=== PATIENT | male | born 1950 | race Caucasian/White ===

== ENCOUNTER → 2018-05-19 10:55 | Outpatient (CLI) | payer MEDICARE, SELFPAY ==
[2018-05-19 12:43] LABS: BUN Creatinine Ratio 17.5 (6-22); Blood Urea Nitrogen 21 mg/dL (9-20); Calcium 9.7 mg/dL (8.4-10.2); Carbon Dioxide 30 mmol/L (22-32); Chloride 103 mmol/L (98-107); Estimated Glomerular Filt Rate > 60.0 mL/min (>60); Glucose 103 mg/dL (80-110); HEMOLYSIS < 15 (0-50); Sodium 143 mmol/L (137-145)
== END ==
PROVIDERS: PCP Internal Medicine; Visit Provider Hospitalist
DX: I48.0 Paroxysmal atrial fibrillation (principal)
CPT/HCPCS: 36415; 80048

== ENCOUNTER → 2018-06-28 08:57 | Outpatient (CLI) | payer MEDICARE, SELFPAY ==
[2018-06-28 10:55] LABS: Alanine Aminotransferase 29 IU/L (21-72); Albumin 4.3 g/dL (3.5-5.0); Albumin Globulin Ratio 1.8 (1.0-2.8); Alkaline Phosphatase 74 U/L (38-126); Aspartate Aminotransferase 24 IU/L (17-59); BUN Creatinine Ratio 15.5 (6-22); Bilirubin Total 0.7 mg/dL (0.2-1.3); Blood Urea Nitrogen 17 mg/dL (9-20); Calcium 9.6 mg/dL (8.4-10.2); Carbon Dioxide 27 mmol/L (22-32); Chloride 102 mmol/L (98-107); Cholesterol 198 mg/dL (140-199); Estimated Glomerular Filt Rate > 60.0 mL/min (>60); Globulin 2.4 g/dL (1.7-4.1); Glucose 104 mg/dL (80-110); HDL Cholesterol 54 mg/dL (40-60); HEMOLYSIS < 15 (0-50); LDL Cholesterol Calculated 124 mg/dL (<100); Potassium 4.4 mmol/L (3.4-5.1); Sodium 141 mmol/L (137-145); Total Protein 6.7 g/dL (6.3-8.2); Triglycerides 98 mg/dL (35-150)
[2018-06-28 11:03] LABS: Free T4, Direct Thyroxine 1.15 ng/dL (0.78-2.19)
[2018-06-28 11:16] LABS: Prostate Specific Antigen Scrn 1.11 ng/mL (0.1-4.0)
[2018-06-28 11:17] LABS: Thyroid Stimulating Hormone 1.56 uIU/mL (0.47-4.68)
== END ==
PROVIDERS: PCP Internal Medicine; Visit Provider Internal Medicine
DX: I48.0 Paroxysmal atrial fibrillation (principal); Z12.5 Encounter for screening for malignant neoplasm of prostate; Z13.6 Encounter for screening for cardiovascular disorders
CPT/HCPCS: 36415; 80053; 80061; 84439; 84443; G0103

== ENCOUNTER 2019-10-06 12:42 | Emergency (ER) | payer OTHER, SELFPAY ==
[2019-10-06 12:50] VITALS: BP 161/76; PULSE 56; RESP 18; TEMP 36.4; O2SAT 99
--- NOTE | 2019-10-06 13:09 | ED.EPISTAXIS ---
HPI - Epistaxis General Chief complaint: Nasal Problem Stated complaint: desk slammed into face, thinks Fx nose Time Seen by Provider: 10/06/19 12:51 Source: patient and family Mode of arrival: Ambulatory Limitations: no limitations History of Present Illness HPI Narrative: 68-year-old male nonsmoker with history of clotting disorder on Eliquis presents with a chief complaint of an accidental injury this morning which resulted in a significant nose bleed. The patient was carrying a heavy object down some stairs when he slipped and rammed his face into a large wooden block. He states that his nose took all of the injury and did not hit his head. He denies loss of consciousness nor nausea or vomiting. He has significant nose pain and is convinced he broke his nose. Additionally, he has had significant bleeding coming from both nostrils. He is not dizzy nor weak or lightheaded. He is otherwise well and free from injury. MD complaint: epistaxis Location: bilateral nostril Onset (ago): hour(s) Duration: constant Treatment prior to arrival: nose pinching Related Data Home Medications Medication Instructions Recorded Confirmed ASCORBIC ACID (VITAMIN C) 1,000 mg PO Q DAY #0 10/01/11 06/27/18 diltiazem HCl 120 mg PO QDAY #0 05/14/17 06/27/18 esomeprazole magnesium [Nexium] 40 mg PO QDAY #0 05/14/17 06/27/18 cholecalciferol (vitamin D3) 125 5,000 unit PO DAILY 06/27/18 06/27/18 mcg (5,000 unit) capsule edoxaban 60 mg tablet 60 mg PO DAILY 06/27/18 06/27/18 flecainide 100 mg tablet 100 mg PO Q12H 06/27/18 06/27/18 iuxzeheh-gto-atbuu acid 300 1 tab PO DAILY 06/27/18 06/27/18 mcg-lycopene 600 mcg-lutein 300 mcg tablet Previous Rx's Medication Instructions Recorded mupirocin 2 % topical ointment 1 applic TOP BID #30 gram 07/11/19 trazodone 50 mg tablet See Rx Instructions .ROUTE 10/02/19 .COMPLEX #90 tablet Allergies Allergy/AdvReac Type Severity Reaction Status Date / Time No Known Drug Allergies Allergy Verified 10/06/19 13:10 Review of Systems Constitutional Constitutional: Denies chills, Denies fatigue, Denies fever(s), Denies frequent falls, Denies lethargy and Denies weakness Eyes Eyes: Denies change in vision, Denies eye discharge, Denies irritation and Denies loss of vision ENT Ears, Nose, Mouth, and Throat: Denies change in voice, Denies dizziness, Reports epistaxis, Denies neck pain, Denies sore throat and Denies throat swelling Cardiovascular Cardiovascular: Denies chest pain, Denies irregular heart rhythm, Denies lightheadedness, Denies palpitations, Denies dyspnea, Denies dyspnea on exertion and Denies orthopnea Respiratory Respiratory: Denies cough, Denies dyspnea, Denies dyspnea on exertion and Denies wheezing Gastrointestinal Gastrointestinal: Denies abdominal pain, Denies change in bowel habits, Denies diarrhea, Denies nausea and Denies vomiting Genitourinary Genitourinary: Denies hematuria, Denies flank pain, Denies urinary incontinence and Denies urinary urgency Musculoskeletal Musculoskeletal: Denies back pain, Denies muscle weakness, Denies neck pain, Denies numbness and Denies tingling Integumentary/Breasts Skin/Breast: Denies pruritus, Denies erythema, Denies rash and Denies wounds Neurologic Neurologic: Denies behavioral changes, Denies confusion, Denies dizziness, Denies frequent falls, Denies loss of vision, Denies numbness, Denies tingling and Denies weakness Psychiatric Psychiatric: Denies anxiety, Denies behavioral changes, Denies confusion, Denies depression, Denies homicidal ideation and Denies suicidal ideation Endocrine Endocrine: Denies fatigue, Denies flushing and Denies palpitations Hematologic/Lymphatic Hematologic/Lymphatic: Denies easy bruising Allergic/Immunologic Allergic/Immunologic: Denies urticaria, Denies throat swelling and Denies wheezing Patient History Medical History Back stiffness (Resolved) Basal cell carcinoma (BCC) of right ala nasi (Resolved 12/2017) Basal cell carcinoma (BCC) of right cheek (Resolved 12/2017) Chicken pox (Resolved ~1959) History of cardioversion (Resolved 1998) Measles (Resolved ~1961) Mumps (Resolved ~1961) MICHAEL (obstructive sleep apnea) (Chronic 02/01/15) Paroxysmal atrial fibrillation (Chronic 01/10/14) Thumb fracture (Resolved 1967) Tinnitus (Chronic ~1999) Surgical History Anesthesia (Resolved) History of colonoscopy (Resolved 02/18/07) History of colonoscopy (Resolved 05/22/16) History of lung biopsy (Resolved) History of thumb surgery (Resolved 1967) History of tonsillectomy (Resolved 1957) History of vasectomy (Resolved 2001) Status post knee surgery (Resolved 1968) Status post Mohs micrographic surgery for basal cell carcinoma (BCC) (Resolved 01/03/18) Family History Brother Age: 56 Atrial fibrillation Father Age: 91 Atrial fibrillation Parkinson's disease Mother Age: 91 Poor balance Sister No problems noted. 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 ) substance use type: does not use Smoking Status: Never smoker Exam Narrative Exam Narrative: GENERAL: [68] year old patient appears stated age. Well-nourished, well-developed patient, in mild distress. HEAD: Atraumatic. Normocephalic. EYES: Pupils equal round and reactive. Extraocular motions intact. No scleral icterus. No injection or drainage. ENT: Nose with swelling and tenderness to palpation, active bleeding and fresh clots in bilateral nostrils. No obvious source of bleeding noted. Throat without erythema, tonsillar hypertrophy or exudate. Airway patent. NECK: Trachea midline. Non tender CARDIOVASCULAR: Regular rate and rhythm without murmurs, gallops, or rubs. RESPIRATORY: Clear to auscultation. Breath sounds equal bilaterally. No wheezes, rales, or rhonchi. GASTROINTESTINAL: Abdomen soft, non-tender, nondistended. EXTREMITIES: No edema or joint tenderness. BACK: Nontender without deformity or crepitance. No flank tenderness. NEURO: AOx3. SKIN: No rash or erythema of visible areas Initial Vital Signs Initial Vital Signs: Vital Signs Temperature 97.5 F L 10/06/19 12:50 Pulse Rate 56 L 10/06/19 12:50 Respiratory Rate 18 10/06/19 12:50 Blood Pressure 161/76 H 10/06/19 12:50 Pulse Oximetry 99 10/06/19 12:50 Procedures Epistaxis Control Time Out Performed: No Nostril: bilateral Nose Prepped With: oxymetazoline Direct Inspection: yes and unable to visualize Clots Removed by: blowing nose Device Inserted: other Course Course Course Narrative: Given Eliquis and significant amount of bleeding as well as inability to visualize source of bleeding nasal tampon or rhino rockets are indicated. I have consulted ENT given the presence of nasal bone and septal fracture and they request patient be sent to their office directly from ED. Orders Ordered: ED Orders 10/06/19 13:17 CT facial bones wo con Stat Discontinued Medications Oxymetazoline HCl (Afrin) 2 sprays NASAL NOW ONE Stop: 10/06/19 14:29 Last Admin: 10/06/19 14:41 Dose: 2 sprays Documented by: CAROL Tranexamic Acid (Cyklokapron) 1,000 mg MM NOW ONE Stop: 10/06/19 14:29 Last Admin: 10/06/19 14:41 Dose: 1,000 mg Documented by: CAROL Vital Signs Vital signs: Vital Signs - 8 hr 10/06/19 12:50 10/06/19 14:58 Temperature 97.5 F L Pulse Rate 56 L 55 L Respiratory Rate 18 18 Blood Pressure 161/76 H Blood Pressure [Left Arm] 146/72 H Pulse Oximetry 99 99 MDM - Epistaxis Imaging Data CT Facial Bones: Radiologist's Impression: [address] [address] [address] Scan Report Signed Patient: Wojciech Qunin FMR#: [id number] : 2Acct:[id number] Age/Sex: 68 / MDate of Service: 10/06/19 Loc: ED Accession Number: [id number] Procedure: CT facial bones wo con Ordering Provider: Victor M Perkins D.O. PROCEDURE: CT FACIAL BONES WO CON INDICATIONS: facial injury, on eliquis TECHNIQUE: Noncontrast 2.5 mm thick axial images acquired from the mandible through the frontal sinuses, with coronal and sagittal reformatting. For radiation dose reduction, the following was used: automated exposure control, adjustment of mA and/or kV according to patient size. COMPARISON: None. FINDINGS: Image quality: Excellent. Bones and teeth: Orbital johns are intact. Sinus johns show no fracture or deformity. Nasal bones and septum are injured, with what appears to be bilateral very slightly displaced nasal bone fractures at the middle third of the midline nasal septum there is a small acutely angulated deviation of the septal wall rightward, seen on series 2 image 78. Visualized portions of the mandible demonstrate no fractures or subluxation. Zygomatic arches are intact. Pterygoid plates are intact. Visualized portions of the skull base and auditory canals are intact. Sinuses: Paranasal sinuses are aerated, without fluid levels, mucosal thickening, or mucoceles. Mastoid air cells are aerated. Soft tissues: No edema, masses, or fluid collections. No enlarged lymph nodes. No soft tissue lacerations or debris. Vascular: Visualized vascular structures appear normal in the absence of contrast. Bony vascular foramina and canals are intact. IMPRESSION: Minimally displaced bilateral nasal bone fractures, minimally displaced midline nasal septal fracture at the middle third of the nasal septum, without secondary acute deviation of the nasal septum. Mild ethmoid air cell opacification likely represents reflux of epistaxis in this clinical circumstance. Dictated by: Moy Moreno M.D. on 10/06/2019 at 13:45 Approved by: Moy Moreno M.D. on 10/06/2019 at 13:48 Discharge Plan Departure Patient Disposition: Home Clinical Impression: Acute posterior epistaxis, Anticoagulation adequate Closed fracture nasal bone Qualifiers: Encounter type: initial encounter Qualified Code(s): S02.2XXA - Fracture of nasal bones, initial encounter for closed fracture Discharge Date/Time: 10/06/19 15:01 Activity Restrictions/Additional Instructions: Please proceed directly from our emergency department to [facility], Dr. Ferrer is waiting for you Directions have been provided Prescriptions: No Action mupirocin 2 % ointment 1 applic TOP BID Qty: 30 RF: 0 ASCORBIC ACID (VITAMIN C) 1,000 mg PO Q DAY Qty: 0 RF: 0 diltiazem HCl 120 MG capsule,extended release 24hr 120 mg PO QDAY Qty: 0 RF: 0 esomeprazole magnesium [Nexium] 40 MG capsule,delayed release(DR/EC) 40 mg PO QDAY Qty: 0 RF: 0 trazodone 50 mg tablet See Rx Instructions .ROUTE .COMPLEX Qty: 90 RF: 0 flecainide 100 mg tablet 100 mg PO Q12H RF: 0 cholecalciferol (vitamin D3) 5,000 unit capsule 5,000 unit PO DAILY RF: 0 zdzyvdoo-nfo-AB-lycopen-lutein [Centrum Silver Ultra Men's] 300-600-300 mcg tablet 1 tab PO DAILY RF: 0 edoxaban 60 mg tablet 60 mg PO DAILY RF: 0 Referrals: Jose G Ferrer MD [Physician] - Nain Blood MD [Primary Care Provider] -
--- NOTE | 2019-10-06 13:11 | PC.NURSE ---
nasal clamp placed on at triage. bleeding controlled
--- NOTE | 2019-10-06 13:17 | DI.CT.S_ITS ---
PROCEDURE: CT FACIAL BONES WO CON INDICATIONS: facial injury, on eliquis TECHNIQUE: Noncontrast 2.5 mm thick axial images acquired from the mandible through the frontal sinuses, with coronal and sagittal reformatting. For radiation dose reduction, the following was used: automated exposure control, adjustment of mA and/or kV according to patient size. COMPARISON: None. FINDINGS: Image quality: Excellent. Bones and teeth: Orbital johns are intact. Sinus johns show no fracture or deformity. Nasal bones and septum are injured, with what appears to be bilateral very slightly displaced nasal bone fractures at the middle third of the midline nasal septum there is a small acutely angulated deviation of the septal wall rightward, seen on series 2 image 78. Visualized portions of the mandible demonstrate no fractures or subluxation. Zygomatic arches are intact. Pterygoid plates are intact. Visualized portions of the skull base and auditory canals are intact. Sinuses: Paranasal sinuses are aerated, without fluid levels, mucosal thickening, or mucoceles. Mastoid air cells are aerated. Soft tissues: No edema, masses, or fluid collections. No enlarged lymph nodes. No soft tissue lacerations or debris. Vascular: Visualized vascular structures appear normal in the absence of contrast. Bony vascular foramina and canals are intact. IMPRESSION: Minimally displaced bilateral nasal bone fractures, minimally displaced midline nasal septal fracture at the middle third of the nasal septum, without secondary acute deviation of the nasal septum. Mild ethmoid air cell opacification likely represents reflux of epistaxis in this clinical circumstance. Dictated by: Moy Moreno M.D. on 10/06/2019 at 13:45 Approved by: Moy Moreno M.D. on 10/06/2019 at 13:48
[2019-10-06] MEDS: OXYMETAZOLINE NASAL SPRAY 30 ML 2 SPRAYS NASAL (14:41)
[2019-10-06] MEDS: TRANEXAMIC ACID 1,000 MG VIAL 1000 MG MM (14:41)
[2019-10-06 14:58] VITALS: BP 146/72; PULSE 55; RESP 18; O2SAT 99
== END 2019-10-06 15:01 | disposition home or self-care (01) ==
PROVIDERS: Emergency Provider Emergency Medicine; PCP Internal Medicine
DX: S02.2XXA Fracture of nasal bones, initial encounter for closed fracture (principal); R04.0 Epistaxis; D68.32 Hemorrhagic disorder due to extrinsic circulating anticoagulants; T45.515A Adverse effect of anticoagulants, initial encounter; W22.8XXA Striking against or struck by other objects, initial encounter; Z79.01 Long term (current) use of anticoagulants
CPT/HCPCS: 70486; 99283; 99284

== ENCOUNTER → 2019-10-19 10:17 | Outpatient (CLI) | payer OTHER, SELFPAY ==
[2019-10-19 11:12] LABS: Add Manual Diff / Slide Review NO; Basophils Absolute Auto 0 /uL (0-100); Basophils Percent Auto 0.6 % (0-2); Eosinophils Absolute Auto 0 /uL (0-450); Eosinophils Percent Auto 0.7 % (2-4); Hemoglobin 14.5 g/dL (13.5-17.5); Lymphocytes Absolute Auto 1500 /uL (1100-4500); Lymphocytes Percent Auto 28.7 % (25-40); Mean Corpuscular HGB Conc 33.7 % (30-36); Mean Corpuscular Hemoglobin 29.5 PG (26-34); Mean Corpuscular Volume 87.5 fL (80-100); Monocytes Absolute Auto 400 /uL (0-900); Monocytes Percent Auto 7.6 % (3-14); Neutrophils Absolute Auto 3300 /uL (1500-7000); Neutrophils Percent Auto 62.4 % (50-75); Platelet Count 251 X10^3/uL (150-400); Red Blood Cell Count 4.91 X10^6/uL (4.5-5.9); Red Cell Distribution Width 13.3 % (11.6-14.8); White Blood Cell Count 5.3 X10^3/uL (4.5-11.0)
[2019-10-19 12:40] LABS: Alanine Aminotransferase 20 IU/L (<50); Albumin 4.3 g/dL (3.5-5.0); Albumin Globulin Ratio 1.7 (1.0-2.8); Alkaline Phosphatase 72 U/L (38-126); Aspartate Aminotransferase 28 IU/L (17-59); Bilirubin Total 0.6 mg/dL (0.2-1.3); Blood Urea Nitrogen 21 mg/dL (9-20); Calcium 9.5 mg/dL (8.4-10.2); Carbon Dioxide 27 mmol/L (22-32); Chloride 102 mmol/L (98-107); Cholesterol 134 mg/dL (140-199); Estimated Glomerular Filt Rate > 60.0 mL/min (>60); Globulin 2.6 g/dL (1.7-4.1); Glucose 100 mg/dL (80-110); HDL Cholesterol 55 mg/dL (40-60); HEMOLYSIS < 15 (0-50); LDL Cholesterol Calculated 63 mg/dL (<100); Potassium 4.8 mmol/L (3.4-5.1); Sodium 140 mmol/L (137-145); Total Protein 6.9 g/dL (6.3-8.2); Triglycerides 79 mg/dL (35-150)
[2019-10-19 12:49] LABS: Free T4, Direct Thyroxine 1.21 ng/dL (0.78-2.19)
[2019-10-19 13:03] LABS: Thyroid Stimulating Hormone 2.46 uIU/mL (0.47-4.68)
== END ==
PROVIDERS: PCP Family Medicine Sports Medicine; Referring Provider Hospitalist; Visit Provider Hospitalist
DX: E78.00 Pure hypercholesterolemia, unspecified (principal); E78.5 Hyperlipidemia, unspecified
CPT/HCPCS: 36415; 80053; 80061; 84439; 84443; 85025

== ENCOUNTER → 2020-02-06 14:32 | Outpatient (CLI) | payer OTHER, SELFPAY ==
[2020-02-06 17:53] LABS: Prostate Specific Antigen 1.35 ng/mL (0.10-4.00)
== END ==
PROVIDERS: PCP Family Medicine Sports Medicine; Referring Provider Family Medicine Sports Medicine; Visit Provider Family Medicine Sports Medicine
DX: R35.0 Frequency of micturition (principal)
CPT/HCPCS: 36415; 84153

== ENCOUNTER → 2020-07-16 09:44 | Outpatient (CLI) | payer OTHER, SELFPAY ==
--- NOTE | 2020-07-16 | DI.US.S_ITS ---
PROCEDURE: US CAROTID DOPPLER BI INDICATIONS: DIZZINESS TECHNIQUE: Color and pulse Doppler interrogation was performed of both carotid systems, with image documentation and velocity measurements. COMPARISON: None. FINDINGS: Stenosis calculations are based on SRU (Society of Radiologists in Ultrasound) criteria. Right side: Brachial blood pressure: 112/64 mm Hg. Common carotid artery peak systolic velocity: 127 cm/sec Internal carotid artery peak systolic velocity: 112 cm/sec. Internal carotid artery end diastolic velocity: 24 cm/sec. External carotid artery peak systolic velocity: 104 cm/sec. ICA/CCA peak systolic ratio: 0.9 . San scale imaging description: Mild soft plaque Percent internal carotid artery stenosis: Less than 50% stenosis . Vertebral artery: Flow direction is antegrade. Left side: Brachial blood pressure: 112/69 mm Hg. Common carotid artery peak systolic velocity: 134 cm/sec. Internal carotid artery peak systolic velocity: 96 cm/sec. Internal carotid artery end diastolic velocity: 16 cm/sec. External carotid artery peak systolic velocity: 99 cm/sec. ICA/CCA peak systolic ratio: 0.7 . Asn scale imaging description: Mild soft plaque Percent internal carotid artery stenosis: Less than 50% stenosis. Vertebral artery: Flow direction is antegrade. IMPRESSION: Less than 50% stenosis at the proximal internal carotid arteries bilaterally. Note: Within the thyroid lobe during the course of the examination it was noted that several thyroid nodules are present, measuring up to almost 1.9 cm. If clinically desired a dedicated follow-up thyroid ultrasound could be performed. Dictated by: Moy Moreno M.D. on 07/16/2020 at 13:03 Approved by: Moy Moreno M.D. on 07/16/2020 at 13:12
== END ==
PROVIDERS: PCP Family Medicine Sports Medicine; Referring Provider Family Medicine Sports Medicine; Visit Provider Family Medicine Sports Medicine
DX: I65.23 Occlusion and stenosis of bilateral carotid arteries (principal); R42 Dizziness and giddiness; E04.2 Nontoxic multinodular goiter
CPT/HCPCS: 93880

== ENCOUNTER → 2020-08-19 13:17 | Outpatient (CLI) | payer OTHER, SELFPAY ==
[2020-08-19 14:24] LABS: Alanine Aminotransferase 34 IU/L (<50); Albumin 4.3 g/dL (3.5-5.0); Albumin Globulin Ratio 1.7 (1.0-2.8); Alkaline Phosphatase 88 U/L (38-126); Aspartate Aminotransferase 39 IU/L (17-59); BUN Creatinine Ratio 17.5 (6-22); Bilirubin Total 0.9 mg/dL (0.2-1.3); Blood Urea Nitrogen 17 mg/dL (9-20); Calcium 9.3 mg/dL (8.4-10.2); Carbon Dioxide 29 mmol/L (22-32); Chloride 102 mmol/L (98-107); Estimated Glomerular Filt Rate > 60.0 mL/min (>60); Globulin 2.6 g/dL (1.7-4.1); Glucose 93 mg/dL (80-110); HEMOLYSIS < 15 (0-50); Potassium 4.5 mmol/L (3.4-5.1); Sodium 136 mmol/L (137-145); Total Protein 6.9 g/dL (6.3-8.2)
== END ==
PROVIDERS: PCP Family Medicine Sports Medicine; Referring Provider Internal Medicine Cardiovascular Disease; Visit Provider Internal Medicine Cardiovascular Disease
DX: I48.0 Paroxysmal atrial fibrillation (principal)
CPT/HCPCS: 36415; 80053

== ENCOUNTER → 2020-09-10 12:26 | Outpatient (CLI) | payer OTHER, SELFPAY ==
[2020-09-10 13:21] LABS: BUN Creatinine Ratio 19.2 (6-22); Blood Urea Nitrogen 19 mg/dL (9-20); Calcium 9.3 mg/dL (8.4-10.2); Carbon Dioxide 30 mmol/L (22-32); Chloride 102 mmol/L (98-107); Estimated Glomerular Filt Rate > 60.0 mL/min (>60); Glucose 95 mg/dL (80-110); HEMOLYSIS < 15 (0-50); Potassium 4.5 mmol/L (3.4-5.1); Sodium 138 mmol/L (137-145)
== END ==
PROVIDERS: PCP Family Medicine Sports Medicine; Referring Provider Internal Medicine Cardiovascular Disease; Visit Provider Internal Medicine Cardiovascular Disease
DX: I48.0 Paroxysmal atrial fibrillation (principal)
CPT/HCPCS: 36415; 80048

== ENCOUNTER → 2021-07-22 11:23 | Outpatient (CLI) | payer OTHER, SELFPAY ==
[2021-07-22 13:25] LABS: Prostate Specific Antigen 1.22 ng/mL (0.10-4.00)
== END ==
PROVIDERS: PCP Family Medicine Sports Medicine; Referring Provider Family Medicine Sports Medicine; Visit Provider Family Medicine Sports Medicine
DX: E78.5 Hyperlipidemia, unspecified (principal); Z12.5 Encounter for screening for malignant neoplasm of prostate
CPT/HCPCS: 36415; 80061; 84153

== ENCOUNTER → 2022-08-13 11:21 | Outpatient (CLI) | payer OTHER, SELFPAY ==
[2022-08-13 14:20] LABS: Alanine Aminotransferase 28 IU/L (<50); Albumin 3.9 g/dL (3.5-5.0); Albumin Globulin Ratio 1.5 (1.0-2.8); Alkaline Phosphatase 89 U/L (38-126); Aspartate Aminotransferase 30 IU/L (17-59); BUN Creatinine Ratio 19.4 (6-22); Bilirubin Total 0.4 mg/dL (0.2-1.3); Blood Urea Nitrogen 19 mg/dL (9-20); Calcium 8.6 mg/dL (8.4-10.2); Carbon Dioxide 28 mmol/L (22-32); Chloride 102 mmol/L (98-107); Cholesterol 146 mg/dL (140-199); Estimated Glomerular Filt Rate > 60 mL/min (>60); Globulin 2.6 g/dL (1.7-4.1); Glucose 92 mg/dL (80-110); HDL Cholesterol 59 mg/dL (40-60); HEMOLYSIS < 15 (0-50); LDL Cholesterol Calculated 72 mg/dL (<100); Potassium 4.4 mmol/L (3.4-5.1); Sodium 137 mmol/L (137-145); Total Protein 6.5 g/dL (6.3-8.2); Triglycerides 76 mg/dL (35-150)
== END ==
PROVIDERS: PCP Family Medicine Sports Medicine; Referring Provider Family Medicine Sports Medicine; Visit Provider Family Medicine Sports Medicine
DX: E78.5 Hyperlipidemia, unspecified (principal); Z11.59 Encounter for screening for other viral diseases
CPT/HCPCS: 36415; 80053; 80061

== ENCOUNTER → 2022-08-21 13:14 | Outpatient (CLI) | payer OTHER, SELFPAY ==
--- NOTE | 2022-08-21 13:15 | DI.US.S_ITS ---
PROCEDURE: US THYROID INDICATIONS: Nontoxic multinodular goiter TECHNIQUE: Real-time scanning was performed of the thyroid gland, with image documentation. COMPARISON: None. FINDINGS: Right: Thyroid lobe measures 4.9 x 2.3 x 2.0 cm, and is homogeneous in echotexture. Left: Thyroid lobe measures 4.1 x 2.1 x 1.4 cm, and is homogenous in echotexture. Isthmus: 6.3 mm thick. Nodule number: 1 Location: Right midpole Size: 1.9 x 1.1 x 1.5 cm. Composition: Predominantly solid Echogenicity: Isoechoic/hypoechoic Shape: wider than tall. Margins: Smooth Echogenic foci: Microcalcifications Total points: 4 ACR TI-RADS category: 4 Nodule number: 2 Location: Right inferior lobe Size: 1.7 x 1.2 x 1.3 cm. Composition: Mixed cystic and solid Echogenicity: Hypoechoic Shape: wider than tall. Margins: Smooth Echogenic foci: Microcalcifications Total points: 4 ACR TI-RADS category: 4 Nodule number: 3 Location: Left midpole Size: 0.8 x 0.6 x 0.6 cm. Composition: Predominantly solid Echogenicity: Hypoechoic Shape: wider than tall. Margins: Smooth Echogenic foci: Punctate Total points: 7 ACR TI-RADS category: 5 IMPRESSION: 1. TI-RADS 4 nodules in the right midpole and right inferior pole measuring greater than 1.5 cm and meet criteria for FNA. Recommend FNA of these nodules. 2. TI-RADS 5 nodule in the left inferior pole less than 1 centimeter. Recommend follow-up in 1 year. ACR TI-RADS definitions and recommendations: TI-RADS 1 (benign): 0 points. FNA not needed. TI-RADS 2 (not suspicious): 2 points. FNA not needed. TI-RADS 3 (mildly suspicious): 3 points. * FNA if 2.5 cm or larger, follow up if 1.5 cm or larger (at 1, 3, and 5 years). TI-RADS 4 (moderately suspicious): 4-6 points. * FNA if 1.5 cm or larger, follow up if 1 cm or larger (at 1, 2, 3, and 5 years). TI-RADS 5 (highly suspicious): 7 points or more. * FNA if 1 cm or larger, follow up if 0.5 cm or larger (every year for 5 years). Dictated by: Calixto Duff M.D. on 08/21/2022 at 16:26 Approved by: Calixto Duff M.D. on 08/21/2022 at 16:32
== END ==
PROVIDERS: PCP Family Medicine Sports Medicine; Referring Provider Family Medicine Sports Medicine; Visit Provider Family Medicine Sports Medicine
DX: E04.2 Nontoxic multinodular goiter (principal)
CPT/HCPCS: 76536

== ENCOUNTER 2023-04-03 19:29 | Emergency (ER) | payer OTHER, SELFPAY ==
[2023-04-03] VITALS (7 sets, daily range): BP systolic 128–153; BP diastolic 65–75; PULSE 60; RESP 14–19; TEMP 37.4; O2SAT 95–98; BMI 30.9
--- NOTE | 2023-04-03 19:40 | ED.NEUROSD ---
HPI - Neuro Symptoms/Deficit <Victor M Birchan, DO - Last Filed: 04/04/23 18:19> General Chief Complaint: Neuro Symptoms/Deficit Stated Complaint: Slurring speech T-4 Time Seen by Provider: 04/03/23 19:38 Source: patient and family Mode of arrival: Ambulatory History of Present Illness HPI Narrative: 72-year-old male nonsmoker with history of atrial fibrillation on anticoagulation with pacemaker presents with his in the chief complaint of about 4 days of neurologic symptoms including trouble with speech and slurring of his words. There is no obvious pattern to his symptoms but he states it is happened multiple times each day and when present symptoms last approximately 15 minutes. He is fully aware of when it is happening and denies other symptoms such as dizziness, trouble walking, blurred vision or facial droop. There is no upper or lower extremity numbness, tingling or weakness. His last episode was just prior to his arrival. He is not activated as code stroke as on his arrival he has no symptoms, no evidence of a large vessel occlusion and he is anticoagulated. PACEMAKER [facility] placed at [facility] (Dr. Kendall) 06/24/21 On Anticoagulants: Yes (eliquis) Related Data Home Medications Medication Instructions Recorded Confirmed ASCORBIC ACID (VITAMIN C) 1,000 mg PO Q DAY ##0 10/01/11 06/27/18 diltiazem HCl 120 mg 120 mg PO QDAY ##0 05/14/17 06/27/18 capsule,extended release 24 hr esomeprazole magnesium 40 mg 40 mg PO QDAY ##0 05/14/17 06/27/18 capsule,delayed release (Nexium) cholecalciferol (vitamin D3) 125 5,000 unit PO DAILY 06/27/18 06/27/18 mcg (5,000 unit) capsule edoxaban 60 mg tablet 60 mg PO DAILY 06/27/18 06/27/18 flecainide 100 mg tablet 50 mg PO Q12H 06/27/18 04/04/23 [id number] 300 mcg-K 60 1 tab PO DAILY 06/27/18 06/27/18 mcg-lycop 600 mcg-lutein 300 mcg tablet (Centrum Silver Ultra Men's) apixaban 5 mg tablet (Eliquis) 5 mg PO BID 04/03/23 04/03/23 atorvastatin 40 mg tablet 40 mg PO DAILY 04/04/23 04/04/23 metoprolol succinate 25 mg 12.5 mg PO DAILY 04/04/23 04/04/23 tablet,extended release 24 hr omeprazole 20 mg capsule,delayed 20 mg PO DAILY 04/04/23 04/04/23 release trazodone 50 mg tablet 100 mg PO BEDTIME 04/04/23 04/04/23 Previous Rx's Medication Instructions Recorded mupirocin 2 % topical ointment 1 applic topical BID #30 grams 07/11/19 Allergies Allergy/AdvReac Type Severity Reaction Status Date / Time No Known Drug Allergies Allergy Verified 10/06/19 13:10 Review of Systems <Victor M Perkins DO - Last Filed: 04/04/23 18:19> Review of Systems Narrative: GENERAL: Denies chills, fatigue, malaise, fever, sweats. HEENT: Denies sinus pain, ear pain, sore throat, difficulty swallowing, dizziness. RESPIRATORY: Denies dyspnea, cough, wheezing, hemoptysis, sputum. CARDIOVASCULAR: Denies chest pain, palpitations, orthopnea, edema, GASTROINTESTINAL: Denies nausea, vomiting, abdominal pain, diarrhea, constipation, melena. : Denies dysuria, frequency, incontinence, hematuria, urinary retention. MUSCULOSKELETAL: denies weakness, joint pain, or bony pain SKIN: Denies rash, skin lesions, or other NEUROLOGIC: See HPI PSYCHIATRIC: No concerning psychosocial issues. 12 point review of systems is negative except for those stated above Hematologic/Lymphatic On Anticoagulants: Yes (eliquis) Patient History <Victor M Perkins DO - Last Filed: 04/04/23 18:19> Medical History (Updated 04/04/23 @ 08:48 by Marnie Guzman DO) Back stiffness Basal cell carcinoma (BCC) of right ala nasi (12/2017) Basal cell carcinoma (BCC) of right cheek (12/2017) Chicken pox (~1959) History of cardioversion (1998) Measles (~1961) Mumps (~1961) MICHAEL (obstructive sleep apnea) (02/01/15) Paroxysmal atrial fibrillation (08/25/13) Thumb fracture (1967) Tinnitus (~1999) Surgical History Anesthesia History of colonoscopy (02/18/07) History of colonoscopy (05/22/16) History of lung biopsy History of thumb surgery (1967) History of tonsillectomy (1957) History of vasectomy (2001) Status post knee surgery (1968) Status post Mohs micrographic surgery for basal cell carcinoma (BCC) (01/03/18) Family History Brother Age: 59 Atrial fibrillation Father Age: 94 Atrial fibrillation Parkinson's disease Mother Age: 94 Poor balance Sister No problems noted. 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 ) substance use type: does not use Smoking Status: Never smoker alcohol intake frequency: a few times a month Substance Use Type: does not use Exam <Victor M Perkins DO - Last Filed: 04/04/23 18:19> Narrative Exam Narrative: GENERAL: [72] year old patient appears stated age. Well-developed patient, in mild distress. HEAD: Atraumatic. Normocephalic. EYES: Pupils equal round and reactive. Extraocular motions intact. No scleral icterus. No injection or drainage. ENT: Nose without bleeding, purulent drainage. Throat without erythema, tonsillar hypertrophy or exudate. Airway patent. NECK: Trachea midline. Non tender CARDIOVASCULAR: Regular rate and rhythm without murmurs, gallops, or rubs. RESPIRATORY: Clear to auscultation. Breath sounds equal bilaterally. No wheezes, rales, or rhonchi. GASTROINTESTINAL: Abdomen soft, non-tender, nondistended. EXTREMITIES: No edema or joint tenderness. BACK: Nontender without deformity or crepitance. No flank tenderness. NEURO: AOx3. SKIN: No rash or erythema of visible areas NIH Stroke Scale 1a. LOC: Patient is alert and keenly responsive (0) 1b. LOC Questions: Patient answers both LOC questions accurately (0) 1c. LOC Commands: Patient performs both tasks correctly (0) 2. Best Gaze: Normal (0) 3. Visual: No visual loss (0) 4. Facial palsy: Normal symmetrical movements (0) 5. Motor arm: No drift (0) 6. Motor leg: No drift (0) 7. Limb ataxia: Absent (0) 8. Sensory: Normal (0) 9. Best language: No aphasia; normal (0) 10. Dysarthria: Normal (0) 11. Extinction and inattention: No abnormality (0) NIHSS: 0 Initial Vital Signs Initial Vital Signs: Vital Signs Temperature 99.4 F 04/03/23 19:34 Pulse Rate 60 04/03/23 19:34 Respiratory Rate 16 04/03/23 19:34 Blood Pressure 153/72 H 04/03/23 19:34 Pulse Oximetry 98 04/03/23 19:34 Oxygen Delivery Method Room Air 04/03/23 19:34 <Marnie Guzman DO - Last Filed: 04/04/23 12:04> Initial Vital Signs Initial Vital Signs: Vital Signs Temperature 99.4 F 04/03/23 19:34 Pulse Rate 60 04/03/23 19:34 Respiratory Rate 16 04/03/23 19:34 Blood Pressure 153/72 H 04/03/23 19:34 Pulse Oximetry 98 04/03/23 19:34 Oxygen Delivery Method Room Air 04/03/23 19:34 Course <DO Harley Mitchell Last Filed: 04/04/23 18:19> Orders Ordered: Discontinued Medications Apixaban (Apixaban 5 Mg Tablet) 5 mg PO NOW ONE Stop: 04/04/23 06:33 Last Admin: 04/04/23 07:50 Dose: 5 mg Documented By: RAMÍREZ Apixaban (Apixaban 5 Mg Tablet) 5 mg PO BID [facility] Aspirin (Aspirin Ec 325 Mg Tablet) 325 mg PO NOW ONE Stop: 04/04/23 01:34 Last Admin: 04/04/23 02:57 Dose: 325 mg Documented By: EVERETT Atorvastatin Calcium (Atorvastatin 20 Mg Tablet) 40 mg PO DAILY [facility] Last Admin: 04/04/23 10:10 Dose: Not Given Documented By: KM Atorvastatin Calcium (Atorvastatin 20 Mg Tablet) 40 mg PO BEDTIME YANELY Diltiazem HCl (Diltiazem Cd 120 Mg Cap) 120 mg PO NOW ONE Stop: 04/04/23 06:33 Last Admin: 04/04/23 07:51 Dose: 120 mg Documented By: RAMÍREZ Flecainide Acetate (Flecainide 100 Mg Tablet) 100 mg PO Q12H [facility] Last Admin: 04/04/23 08:34 Dose: 100 mg Documented By: RAMÍREZ Ondansetron HCl (Ondansetron 4 Mg/2 Ml Inj) 4 mg IV NOW PRN PRN Reason: Nausea And Vomiting Ondansetron HCl (Ondansetron 4 Mg Odt) 4 mg SL NOW PRN PRN Reason: Nausea And Vomiting Pantoprazole Sodium (Pantoprazole 40 Mg Vial) 40 mg IV NOW ONE Stop: 04/04/23 06:33 Last Admin: 04/04/23 07:51 Dose: 40 mg Documented By: RAMÍREZ Vital Signs Vital signs: Vital Signs - 8 hr 04/04/23 10:30 04/04/23 10:31 04/04/23 10:31 Pulse Rate 59 L 59 L Respiratory Rate 20 28 H Blood Pressure 117/60 Pulse Oximetry 99 99 04/04/23 11:00 04/04/23 11:00 Pulse Rate 60 Respiratory Rate 20 Blood Pressure 127/59 L Pulse Oximetry 98 <Marnie Guzman DO - Last Filed: 04/04/23 12:04> Orders Ordered: Discontinued Medications Apixaban (Apixaban 5 Mg Tablet) 5 mg PO NOW ONE Stop: 04/04/23 06:33 Last Admin: 04/04/23 07:50 Dose: 5 mg Documented By: RAMÍREZ Apixaban (Apixaban 5 Mg Tablet) 5 mg PO BID [facility] Aspirin (Aspirin Ec 325 Mg Tablet) 325 mg PO NOW ONE Stop: 04/04/23 01:34 Last Admin: 04/04/23 02:57 Dose: 325 mg Documented By: EVERETT Atorvastatin Calcium (Atorvastatin 20 Mg Tablet) 40 mg PO DAILY [facility] Last Admin: 04/04/23 10:10 Dose: Not Given Documented By: MELLY Atorvastatin Calcium (Atorvastatin 20 Mg Tablet) 40 mg PO BEDTIME YANELY Diltiazem HCl (Diltiazem Cd 120 Mg Cap) 120 mg PO NOW ONE Stop: 04/04/23 06:33 Last Admin: 04/04/23 07:51 Dose: 120 mg Documented By: RAMÍREZ Flecainide Acetate (Flecainide 100 Mg Tablet) 100 mg PO Q12H YANELY Last Admin: 04/04/23 08:34 Dose: 100 mg Documented By: RAMÍREZ Ondansetron HCl (Ondansetron 4 Mg/2 Ml Inj) 4 mg IV NOW PRN PRN Reason: Nausea And Vomiting Ondansetron HCl (Ondansetron 4 Mg Odt) 4 mg SL NOW PRN PRN Reason: Nausea And Vomiting Pantoprazole Sodium (Pantoprazole 40 Mg Vial) 40 mg IV NOW ONE Stop: 04/04/23 06:33 Last Admin: 04/04/23 07:51 Dose: 40 mg Documented By: RAMÍREZ Vital Signs Vital signs: Vital Signs - 8 hr 04/04/23 10:30 04/04/23 10:31 04/04/23 10:31 Pulse Rate 59 L 59 L Respiratory Rate 20 28 H Blood Pressure 117/60 Pulse Oximetry 99 99 04/04/23 11:00 04/04/23 11:00 Pulse Rate 60 Respiratory Rate 20 Blood Pressure 127/59 L Pulse Oximetry 98 MDM - Neuro Symptoms/Deficit <Victor M Perkins DO - Last Filed: 04/04/23 18:19> Lab Data 04/03/23 19:50 04/03/23 19:50 Labs: Lab Results 04/03/23 04/03/23 04/03/23 Range/Units 19:50 19:50 19:50 WBC 9.1 (4.5-11.0) X10^3/uL RBC 4.66 (4.5-5.9) X10^6/uL Hgb 13.9 (13.5-17.5) g/dL Hct 40.3 L (41-53) % MCV 86.5 (80-100) fL MCH 29.8 (26-34) PG MCHC 34.4 (30-36) % RDW 13.0 (11.6-14.8) % Plt Count 203 (150-400) X10^3/uL Neut % (Auto) 75.2 H (50-75) % Lymph % (Auto) 16.8 L (25-40) % [place] % (Auto) 6.6 (3-14) % Eos % (Auto) 0.3 L (2-4) % Baso % (Auto) 1.1 (0-2) % Neut # (Auto) 6900 (3063-5259) /uL Lymph # (Auto) 1500 (6757-6218) /uL [place] # (Auto) 600 (0-900) /uL Eos # (Auto) 0 (0-450) /uL Baso # (Auto) 100 (0-100) /uL PT 18.2 H (10.1-12.7) SECONDS INR 1.6 H (0.9-1.3) APTT 34 (26-36) SECONDS Sodium 134 L (137-145) mmol/L Potassium 3.5 (3.4-5.1) mmol/L Chloride 103 (98-107) mmol/L Carbon Dioxide 24 (22-32) mmol/L BUN 14 (9-20) mg/dL Creatinine 0.94 (0.66-1.25) mg/dL Estimated GFR > 60 (>60) mL/min BUN/Creatinine Ratio 14.9 (6-22) Glucose 111 H (80-110) mg/dL Calcium 8.9 (8.4-10.2) mg/dL Magnesium 1.8 (1.6-2.3) mg/dL Total Bilirubin 0.9 (0.2-1.3) mg/dL AST 41 (17-59) IU/L ALT 26 (<50) IU/L Alkaline Phosphatase 86 (38-126) U/L Total Creatine Kinase 307 H (55-170) U/L Troponin I < 0.012 (0.01-0.034) ng/mL Total Protein 6.6 (6.3-8.2) g/dL Albumin 4.1 (3.5-5.0) g/dL Globulin 2.5 (1.7-4.1) g/dL Albumin/Globulin Ratio 1.6 (1.0-2.8) Urine RBC (0-5/HPF) Urine WBC (0-5/HPF) Ur Squamous Epith Cells (0-5/HPF) Urine Bacteria (None) Hyaline Casts (None) Urine Mucus (Negative) Ur Culture Indicated? U Opiates 300ng/mL cut (Negative) Ur Oxycodone Screen (Negative) Urine Methadone Screen (Negative) Ur Barbiturates Screen (Negative) U Tricyclic Antidepress (Negative) Ur Phencyclidine Scrn (Negative) Ur Amphetamines Screen (Negative) U Methamphetamines Scrn (Negative) Ur MDMA Scrn (Ecstasy) (Negative) U Benzodiazepines Scrn (Negative) Urine Cocaine Screen (Negative) U Marijuana (THC) Screen (Negative) 04/03/23 04/03/23 Range/Units 20:20 20:20 WBC (4.5-11.0) X10^3/uL RBC (4.5-5.9) X10^6/uL Hgb (13.5-17.5) g/dL Hct (41-53) % MCV (80-100) fL MCH (26-34) PG MCHC (30-36) % RDW (11.6-14.8) % Plt Count (150-400) X10^3/uL Neut % (Auto) (50-75) % Lymph % (Auto) (25-40) % [place] % (Auto) (3-14) % Eos % (Auto) (2-4) % Baso % (Auto) (0-2) % Neut # (Auto) (1621-8854) /uL Lymph # (Auto) (5616-4690) /uL [place] # (Auto) (0-900) /uL Eos # (Auto) (0-450) /uL Baso # (Auto) (0-100) /uL PT (10.1-12.7) SECONDS INR (0.9-1.3) APTT (26-36) SECONDS Sodium (137-145) mmol/L Potassium (3.4-5.1) mmol/L Chloride (98-107) mmol/L Carbon Dioxide (22-32) mmol/L BUN (9-20) mg/dL Creatinine (0.66-1.25) mg/dL Estimated GFR (>60) mL/min BUN/Creatinine Ratio (6-22) Glucose (80-110) mg/dL Calcium (8.4-10.2) mg/dL Magnesium (1.6-2.3) mg/dL Total Bilirubin (0.2-1.3) mg/dL AST (17-59) IU/L ALT (<50) IU/L Alkaline Phosphatase (38-126) U/L Total Creatine Kinase (55-170) U/L Troponin I (0.01-0.034) ng/mL Total Protein (6.3-8.2) g/dL Albumin (3.5-5.0) g/dL Globulin (1.7-4.1) g/dL Albumin/Globulin Ratio (1.0-2.8) Urine RBC 1-5/hpf (0-5/HPF) Urine WBC None seen (0-5/HPF) Ur Squamous Epith Cells None seen (0-5/HPF) Urine Bacteria None seen (None) Hyaline Casts 0-1/lpf (None) Urine Mucus 1+ H (Negative) Ur Culture Indicated? Cult not indicated U Opiates 300ng/mL cut Negative (Negative) Ur Oxycodone Screen Negative (Negative) Urine Methadone Screen Negative (Negative) Ur Barbiturates Screen Negative (Negative) U Tricyclic Antidepress Negative (Negative) Ur Phencyclidine Scrn Negative (Negative) Ur Amphetamines Screen Negative (Negative) U Methamphetamines Scrn Negative (Negative) Ur MDMA Scrn (Ecstasy) Negative (Negative) U Benzodiazepines Scrn Negative (Negative) Urine Cocaine Screen Negative (Negative) U Marijuana (THC) Screen Negative (Negative) Urine Dip Bedside Urine Glucose Negative Bedside Urine Bilirubin - Negative Bedside Urine Ketone - Negative Urine Specific [place] 1.01 Bedside Urine Occult Blood + Bedside Urine pH 6 Bedside Urine Protein - Negative Bedside Urine Urobilinogen - Negative Bedside Urine Nitrite - Negative Bedside Urine Leukocytes - Negative Esterase MDM Narrative Medical decision making narrative: CC: 72-year-old male with AFib presents with 8-10 episodes of garbled speech and word salad Complicating co-morbidities: Age, AFib, anticoagulation Data collected from: Patient Medical records reviewed: Prior notes reviewed in our EMR Differential considered, but not limited to: TIA versus seizure versus other Exam documented above, pertinent findings include: Heart rate regular, lungs clear, A&O x3, GCS 15, NIH stroke scale 0 Lab Test results independently reviewed as above. Pertinent findings: No significant abnormal findings Independently reviewed EKG as above Imaging studies independently reviewed: That would require a specific or immediate intervention CT of the head as well as CTA of head and neck without acute findings Scores Used: NIHSS Consultations: 2313 - [place] [place]: patient needs admission MRI, and completion of stroke work up. Unfortunately their facilities on critical bed status and they can not help facilitate the transfer [facility] - no inpatient neuro [place] - on list Neurology - [place]: Agrees with plan, requests start ASA 325mg. Will need to speak with hospitalist. Currently no beds 0148 - [facility] Neuro (Dr. Bryson): agrees with plan. Requests discussion with hospitalist [phone] - [facility] Hospitalist (Dr. Rodriguez): happy to accept, pending bed availability Treatments: Re-evaluations: Discussion: <Marnie Guzman DO - Last Filed: 04/04/23 12:04> Lab Data Labs: Lab Results 04/03/23 04/03/23 04/03/23 Range/Units 19:50 19:50 19:50 WBC 9.1 (4.5-11.0) X10^3/uL RBC 4.66 (4.5-5.9) X10^6/uL Hgb 13.9 (13.5-17.5) g/dL Hct 40.3 L (41-53) % MCV 86.5 (80-100) fL MCH 29.8 (26-34) PG MCHC 34.4 (30-36) % RDW 13.0 (11.6-14.8) % Plt Count 203 (150-400) X10^3/uL Neut % (Auto) 75.2 H (50-75) % Lymph % (Auto) 16.8 L (25-40) % [place] % (Auto) 6.6 (3-14) % Eos % (Auto) 0.3 L (2-4) % Baso % (Auto) 1.1 (0-2) % Neut # (Auto) 6900 (8443-9159) /uL Lymph # (Auto) 1500 (2273-4995) /uL [place] # (Auto) 600 (0-900) /uL Eos # (Auto) 0 (0-450) /uL Baso # (Auto) 100 (0-100) /uL PT 18.2 H (10.1-12.7) SECONDS INR 1.6 H (0.9-1.3) APTT 34 (26-36) SECONDS Sodium 134 L (137-145) mmol/L Potassium 3.5 (3.4-5.1) mmol/L Chloride 103 (98-107) mmol/L Carbon Dioxide 24 (22-32) mmol/L BUN 14 (9-20) mg/dL Creatinine 0.94 (0.66-1.25) mg/dL Estimated GFR > 60 (>60) mL/min BUN/Creatinine Ratio 14.9 (6-22) Glucose 111 H (80-110) mg/dL Calcium 8.9 (8.4-10.2) mg/dL Magnesium 1.8 (1.6-2.3) mg/dL Total Bilirubin 0.9 (0.2-1.3) mg/dL AST 41 (17-59) IU/L ALT 26 (<50) IU/L Alkaline Phosphatase 86 (38-126) U/L Total Creatine Kinase 307 H (55-170) U/L Troponin I < 0.012 (0.01-0.034) ng/mL Total Protein 6.6 (6.3-8.2) g/dL Albumin 4.1 (3.5-5.0) g/dL Globulin 2.5 (1.7-4.1) g/dL Albumin/Globulin Ratio 1.6 (1.0-2.8) Urine RBC (0-5/HPF) Urine WBC (0-5/HPF) Ur Squamous Epith Cells (0-5/HPF) Urine Bacteria (None) Hyaline Casts (None) Urine Mucus (Negative) Ur Culture Indicated? U Opiates 300ng/mL cut (Negative) Ur Oxycodone Screen (Negative) Urine Methadone Screen (Negative) Ur Barbiturates Screen (Negative) U Tricyclic Antidepress (Negative) Ur Phencyclidine Scrn (Negative) Ur Amphetamines Screen (Negative) U Methamphetamines Scrn (Negative) Ur MDMA Scrn (Ecstasy) (Negative) U Benzodiazepines Scrn (Negative) Urine Cocaine Screen (Negative) U Marijuana (THC) Screen (Negative) 04/03/23 04/03/23 Range/Units 20:20 20:20 WBC (4.5-11.0) X10^3/uL RBC (4.5-5.9) X10^6/uL Hgb (13.5-17.5) g/dL Hct (41-53) % MCV (80-100) fL MCH (26-34) PG MCHC (30-36) % RDW (11.6-14.8) % Plt Count (150-400) X10^3/uL Neut % (Auto) (50-75) % Lymph % (Auto) (25-40) % [place] % (Auto) (3-14) % Eos % (Auto) (2-4) % Baso % (Auto) (0-2) % Neut # (Auto) (4087-2978) /uL Lymph # (Auto) (1897-6990) /uL [place] # (Auto) (0-900) /uL Eos # (Auto) (0-450) /uL Baso # (Auto) (0-100) /uL PT (10.1-12.7) SECONDS INR (0.9-1.3) APTT (26-36) SECONDS Sodium (137-145) mmol/L Potassium (3.4-5.1) mmol/L Chloride (98-107) mmol/L Carbon Dioxide (22-32) mmol/L BUN (9-20) mg/dL Creatinine (0.66-1.25) mg/dL Estimated GFR (>60) mL/min BUN/Creatinine Ratio (6-22) Glucose (80-110) mg/dL Calcium (8.4-10.2) mg/dL Magnesium (1.6-2.3) mg/dL Total Bilirubin (0.2-1.3) mg/dL AST (17-59) IU/L ALT (<50) IU/L Alkaline Phosphatase (38-126) U/L Total Creatine Kinase (55-170) U/L Troponin I (0.01-0.034) ng/mL Total Protein (6.3-8.2) g/dL Albumin (3.5-5.0) g/dL Globulin (1.7-4.1) g/dL Albumin/Globulin Ratio (1.0-2.8) Urine RBC 1-5/hpf (0-5/HPF) Urine WBC None seen (0-5/HPF) Ur Squamous Epith Cells None seen (0-5/HPF) Urine Bacteria None seen (None) Hyaline Casts 0-1/lpf (None) Urine Mucus 1+ H (Negative) Ur Culture Indicated? Cult not indicated U Opiates 300ng/mL cut Negative (Negative) Ur Oxycodone Screen Negative (Negative) Urine Methadone Screen Negative (Negative) Ur Barbiturates Screen Negative (Negative) U Tricyclic Antidepress Negative (Negative) Ur Phencyclidine Scrn Negative (Negative) Ur Amphetamines Screen Negative (Negative) U Methamphetamines Scrn Negative (Negative) Ur MDMA Scrn (Ecstasy) Negative (Negative) U Benzodiazepines Scrn Negative (Negative) Urine Cocaine Screen Negative (Negative) U Marijuana (THC) Screen Negative (Negative) Urine Dip Bedside Urine Glucose Negative Bedside Urine Bilirubin - Negative Bedside Urine Ketone - Negative Urine Specific [place] 1.01 Bedside Urine Occult Blood + Bedside Urine pH 6 Bedside Urine Protein - Negative Bedside Urine Urobilinogen - Negative Bedside Urine Nitrite - Negative Bedside Urine Leukocytes - Negative Esterase Imaging Data CTA - brain/neck: Radiologist's Impression: PROCEDURE:? CT ANGIO HEAD AND NECK ? INDICATIONS:? stroke like symptoms ? TECHNIQUE:? After the administration of intravenous contrast, 1 mm thick sections acquired from the aortic arch through the [place] of [place].? 3-dimensional dsyhyrz-yzpbmgbin-ceaeyepgqu (MIP) and/or volume rendering reformats were acquired of the central intracranial vasculature and neck separately. For radiation dose reduction, the following was used:? automated exposure control, adjustment of mA and/or kV according to patient size.? ? COMPARISON:? None. ? FINDINGS:? Image quality:? Diagnostic.? ? BRAIN:? CSF spaces:? Ventricles are normal in size and shape.? Basal cisterns are patent.? No extra-axial fluid collections.? ? Brain:? No significant abnormality of the brain can be seen. ? ? ? Skull and face:? Calvarium and facial bones appear intact, without suspicious lesions.? Orbits appear normal.? ? Sinuses:? Sinuses and mastoids are clear.? ? HEAD CT ANGIOGRAPHY:? Anterior circulation:? Intracranial internal carotid arteries are normal in size and flow.? The flow within the paired anterior cerebral arteries is normal and symmetric.? The flow within the middle cerebral arteries is normal and symmetric.? The anterior communicating artery is seen.? No aneurysms are seen.? ? Posterior circulation:? Visualized portions of the vertebral arteries demonstrate normal caliber, and join to form a normal appearing basilar artery.? Flow within the posterior cerebral arteries is normal and symmetric.? No aneurysms are seen.? ? NECK CT ANGIOGRAPHY:? Carotid system:? The great vessels demonstrate a conventional anatomy as they arise from the aortic arch.? The origins of the common carotid arteries appear patent.? The common carotid arteries demonstrate normal caliber and courses.? The bifurcation regions are both widely patent.? The internal carotid arteries demonstrate normal calibers and courses.? ? Posterior circulation:? The origins of the vertebral arteries both appear widely patent.? The more superior extracranial portions of both vertebral arteries also demonstrate normal courses and calibers.? They join to form a normal appearing basilar artery.? ? Soft tissues:? Visualized neck soft tissues demonstrate no suspicious abnormalities.? ? Bones:? No suspicious bony lesions.? Visualized cervical spine appears normally aligned.? IMPRESSION:? No abnormality found, source of reported stroke-like symptoms is not identified. ? Any quantitative measurements of stenosis were performed using NASCET criteria.? ? ? Dictated by: Moy Moreno M.D. on 04/03/2023 at 21:09 ? ? CT scan - head: Radiologist's Impression: PROCEDURE:? CT STROKE ? INDICATIONS:? Positive BE-FAST, Stroke symptoms ? TECHNIQUE:? Noncontrast 4.5 mm thick angled axial sections acquired from the foramen magnum to the vertex, with coronal reformats.? For radiation dose reduction, the following was used:? automated exposure control, adjustment of mA and/or kV according to patient size.? ? COMPARISON:? None. ? FINDINGS:? Image quality:? Excellent.? ? CSF spaces:? Basal cisterns are patent.? No extra-axial fluid collections.? The ventricles are symmetric in size and shape.? ? Brain:? No intracranial bleeds or masses.? There is cerebral volume loss for age, with resultant ventricular and sulcal prominence.? There are periventricular and deep white matter chronic small vessel ischemic changes.? There is intracranial internal carotid artery atherosclerosis.? ? Skull and face:? Calvarium and visualized facial bones appear intact, without suspicious lesions.? ? Sinuses:? Visualized sinuses and mastoids are clear.? ? IMPRESSION:? No acute disease, no evidence of prior stroke, source of reported 5 days of slurred speech is not identified. ? This study fulfills neurological imaging criteria for inclusion or exclusion of acute stroke therapies based on available published neurological guidelines.? ? ? Dictated by: Moy Moreno M.D. on 04/03/2023 at 21:11 ? ? Chest x-ray: Radiologist's Impression: PROCEDURE:? XR CHEST 1V ? INDICATIONS:? Possible stroke ? TECHNIQUE:? One view of the chest was acquired.? ? COMPARISON:? [facility], CR, CHEST 2 VIEW, 02/20/2015, 10:29. ? FINDINGS:? ? Surgical changes and devices:? Pacemaker and dual chamber leads appear normal ? Lungs and pleura:? Lungs are clear.? No pleural effusions or pneumothorax.? ? Mediastinum:? Mediastinal contours appear normal.? Heart size is normal.? ? Bones and chest wall:? No suspicious bony lesions.? Overlying soft tissues appear unremarkable.? ? IMPRESSION:? Pacemaker and leads in normal position, no aspiration found.? Minimal scarring left lung base just above the diaphragm. ? ? Dictated by: Moy Moreno M.D. on 04/03/2023 at 21:07 ? ? MDM Narrative Medical decision making narrative: CC: 72-year-old male with AFib presents with 8-10 episodes of garbled speech and word salad Complicating co-morbidities: Age, AFib, anticoagulation Data collected from: Patient Medical records reviewed: Prior notes reviewed in our EMR Differential considered, but not limited to: TIA versus seizure versus other Exam documented above, pertinent findings include: Heart rate regular, lungs clear, A&O x3, GCS 15, NIH stroke scale 0 Lab Test results independently reviewed as above. Pertinent findings: No significant abnormal findings Independently reviewed EKG as above Imaging studies independently reviewed: That would require a specific or immediate intervention CT of the head as well as CTA of head and neck without acute findings Scores Used: NIHSS Consultations: 2313 - [place] [place]: patient needs admission MRI, and completion of stroke work up. Unfortunately their facilities on critical bed status and they can not help facilitate the transfer [facility] - inpatient neuro [place] - on list Neurology - [facility]: Agrees with plan, requests start ASA 325mg. Will need to speak with hospitalist. Currently no beds 0148 - [facility] (Dr. Bryson): agrees with plan. Requests discussion with hospitalist [id number] - [facility] (Dr. Rodriguez): happy to accept, pending bed availability Treatments: Re-evaluations: Discussion: Dr. Guzman-patient signed out to me by Dr. Perkins if seen evaluated patient myself. He overall appears well he has no difficulty giving me history. He reports that he does have history of AFib pacemaker on Eliquis oral last 5-7 days about twice a day he has expressive aphasia and some slurry overt lasting for about 10-15 minutes. He admits read books at lead to each other and they are times that he can not do that. Currently not having any of those episodes. Multiple physicians and neurologist have been consulted last night agree that he needs an MRI to complete the workup however we are not capable of MRI with pacemaker at this facility. Waiting for placement. [facility] Dr. Mcneil accepts patient under Dr. Abebe. 930-Dr. Rueda can MRI be done out patient? Dr. Herbert, Neurology [facility]. Unfortunately can not have MRI with pacemaker for the next 2-3 days due to availability. Agrees no persistent symptoms maybe a candidate for outpatient trying to help set up outpatient MRI and close follow-up. Unfortunately unable to set up timely outpatient MRI. Patient has been accepted being transferred to [facility] Critical Care Time <Victor M Perkins DO - Last Filed: 04/04/23 18:19> Critical Care Time Critical Care Time: Yes Total Critical Care Time: 45 Attestation: The high probability of a clinically significant, sudden or life threatening deterioration of the [CV] system(s) required my full and direct attention, intervention and personal management. The aggregate critical care time was [45] minutes. This time is in addition to time spent performing reported procedures but includes the following: [x] Data Review and interpretation [x] Patient assessment and monitoring of vital signs [x] Documentation [x] Medication orders and management Discharge Plan Departure Patient Disposition: [facility] Clinical Impression: Brain TIA Prescriptions: No Action mupirocin 2 % ointment 1 applic TOP BID Qty: 30 0RF ASCORBIC ACID (VITAMIN C) 1,000 mg PO Q DAY Qty: 0 diltiazem HCl 120 MG capsule,extended release 24hr 120 mg PO QDAY Qty: 0 esomeprazole magnesium [Nexium] 40 MG capsule,delayed release(DR/EC) 40 mg PO QDAY Qty: 0 flecainide 100 mg tablet 50 mg PO Q12H cholecalciferol (vitamin D3) 5,000 unit capsule 5,000 unit PO DAILY [id number] [Centrum Silver Ultra Men's] 300-600-300 mcg tablet 1 tab PO DAILY edoxaban 60 mg tablet 60 mg PO DAILY Eliquis 5 mg tablet 5 mg PO BID atorvastatin 40 mg tablet 40 mg PO DAILY omeprazole 20 mg Capsule,Delayed Release(Dr/Ec) 20 mg PO DAILY metoprolol succinate 25 mg tablet extended release 24 hr 12.5 mg PO DAILY trazodone 50 mg tablet 100 mg PO BEDTIME Referrals: Francisco Mcneil MD [Primary Care Provider] -
--- NOTE | 2023-04-03 19:53 | DI.CT.S_ITS ---
PROCEDURE: CT STROKE INDICATIONS: Positive BE-FAST, Stroke symptoms TECHNIQUE: Noncontrast 4.5 mm thick angled axial sections acquired from the foramen magnum to the vertex, with coronal reformats. For radiation dose reduction, the following was used: automated exposure control, adjustment of mA and/or kV according to patient size. COMPARISON: None. FINDINGS: Image quality: Excellent. CSF spaces: Basal cisterns are patent. No extra-axial fluid collections. The ventricles are symmetric in size and shape. Brain: No intracranial bleeds or masses. There is cerebral volume loss for age, with resultant ventricular and sulcal prominence. There are periventricular and deep white matter chronic small vessel ischemic changes. There is intracranial internal carotid artery atherosclerosis. Skull and face: Calvarium and visualized facial bones appear intact, without suspicious lesions. Sinuses: Visualized sinuses and mastoids are clear. IMPRESSION: No acute disease, no evidence of prior stroke, source of reported 5 days of slurred speech is not identified. This study fulfills neurological imaging criteria for inclusion or exclusion of acute stroke therapies based on available published neurological guidelines. Dictated by: Moy Moreno M.D. on 04/03/2023 at 21:11 Approved by: Moy Moreno M.D. on 04/03/2023 at 21:12
--- NOTE | 2023-04-03 19:53 | DI.RAD.S_ITS ---
PROCEDURE: XR CHEST 1V INDICATIONS: Possible stroke TECHNIQUE: One view of the chest was acquired. COMPARISON: [facility], , CHEST 2 VIEW, 02/20/2015, 10:29. FINDINGS: Surgical changes and devices: Pacemaker and dual chamber leads appear normal Lungs and pleura: Lungs are clear. No pleural effusions or pneumothorax. Mediastinum: Mediastinal contours appear normal. Heart size is normal. Bones and chest wall: No suspicious bony lesions. Overlying soft tissues appear unremarkable. IMPRESSION: Pacemaker and leads in normal position, no aspiration found. Minimal scarring left lung base just above the diaphragm. Dictated by: Moy Moreno M.D. on 04/03/2023 at 21:07 Approved by: Moy Moreno M.D. on 04/03/2023 at 21:08
--- NOTE | 2023-04-03 19:58 | DI.CT.S_ITS ---
PROCEDURE: CT ANGIO HEAD AND NECK INDICATIONS: stroke like symptoms TECHNIQUE: After the administration of intravenous contrast, 1 mm thick sections acquired from the aortic arch through the [place]. 3-dimensional rzpbszx-lggrblgxs-tphnkupocd (MIP) and/or volume rendering reformats were acquired of the central intracranial vasculature and neck separately. For radiation dose reduction, the following was used: automated exposure control, adjustment of mA and/or kV according to patient size. COMPARISON: None. FINDINGS: Image quality: Diagnostic. BRAIN: CSF spaces: Ventricles are normal in size and shape. Basal cisterns are patent. No extra-axial fluid collections. Brain: No significant abnormality of the brain can be seen. Skull and face: Calvarium and facial bones appear intact, without suspicious lesions. Orbits appear normal. Sinuses: Sinuses and mastoids are clear. HEAD CT ANGIOGRAPHY: Anterior circulation: Intracranial internal carotid arteries are normal in size and flow. The flow within the paired anterior cerebral arteries is normal and symmetric. The flow within the middle cerebral arteries is normal and symmetric. The anterior communicating artery is seen. No aneurysms are seen. Posterior circulation: Visualized portions of the vertebral arteries demonstrate normal caliber, and join to form a normal appearing basilar artery. Flow within the posterior cerebral arteries is normal and symmetric. No aneurysms are seen. NECK CT ANGIOGRAPHY: Carotid system: The great vessels demonstrate a conventional anatomy as they arise from the aortic arch. The origins of the common carotid arteries appear patent. The common carotid arteries demonstrate normal caliber and courses. The bifurcation regions are both widely patent. The internal carotid arteries demonstrate normal calibers and courses. Posterior circulation: The origins of the vertebral arteries both appear widely patent. The more superior extracranial portions of both vertebral arteries also demonstrate normal courses and calibers. They join to form a normal appearing basilar artery. Soft tissues: Visualized neck soft tissues demonstrate no suspicious abnormalities. Bones: No suspicious bony lesions. Visualized cervical spine appears normally aligned. IMPRESSION: No abnormality found, source of reported stroke-like symptoms is not identified. Any quantitative measurements of stenosis were performed using NASCET criteria. Dictated by: Moy Moreno M.D. on 04/03/2023 at 21:09 Approved by: Moy Moreno M.D. on 04/03/2023 at 21:11
--- NOTE | 2023-04-03 20:00 | PC.NURSE ---
Pt/spouse report intermittent episodes of slurred speech for the last 4-5 days. Last episode was today before arrival. Instructed pt/spouse to use call light/inform staff if symptoms return.
[2023-04-03 20:01] LABS: Add Manual Diff / Slide Review NO; Basophils Absolute Auto 100 /uL (0-100); Basophils Percent Auto 1.1 % (0-2); Eosinophils Absolute Auto 0 /uL (0-450); Eosinophils Percent Auto 0.3 % (2-4); Hematocrit 40.3 % (41-53); Hemoglobin 13.9 g/dL (13.5-17.5); Lymphocytes Absolute Auto 1500 /uL (1100-4500); Lymphocytes Percent Auto 16.8 % (25-40); Mean Corpuscular HGB Conc 34.4 % (30-36); Mean Corpuscular Hemoglobin 29.8 PG (26-34); Mean Corpuscular Volume 86.5 fL (80-100); Monocytes Absolute Auto 600 /uL (0-900); Monocytes Percent Auto 6.6 % (3-14); Neutrophils Absolute Auto 6900 /uL (1500-7000); Neutrophils Percent Auto 75.2 % (50-75); Platelet Count 203 X10^3/uL (150-400); Red Blood Cell Count 4.66 X10^6/uL (4.5-5.9); White Blood Cell Count 9.1 X10^3/uL (4.5-11.0)
[2023-04-03 20:08] LABS: INR 1.6 (0.9-1.3); Prothrombin Time 18.2 SECONDS (10.1-12.7)
[2023-04-03 20:10] LABS: PTT Partial Thromboplastin Tim 34 SECONDS (26-36)
[2023-04-03 20:12] LABS: Alanine Aminotransferase 26 IU/L (<50); Albumin 4.1 g/dL (3.5-5.0); Albumin Globulin Ratio 1.6 (1.0-2.8); Alkaline Phosphatase 86 U/L (38-126); Aspartate Aminotransferase 41 IU/L (17-59); BUN Creatinine Ratio 14.9 (6-22); Bilirubin Total 0.9 mg/dL (0.2-1.3); Blood Urea Nitrogen 14 mg/dL (9-20); Calcium 8.9 mg/dL (8.4-10.2); Carbon Dioxide 24 mmol/L (22-32); Chloride 103 mmol/L (98-107); Creatine Kinase 307 U/L (55-170); Estimated Glomerular Filt Rate > 60 mL/min (>60); Globulin 2.5 g/dL (1.7-4.1); Glucose 111 mg/dL (80-110); HEMOLYSIS < 15 (0-50); Magnesium 1.8 mg/dL (1.6-2.3); Potassium 3.5 mmol/L (3.4-5.1); Sodium 134 mmol/L (137-145); Total Protein 6.6 g/dL (6.3-8.2)
[2023-04-03 20:23] LABS: Troponin I < 0.012 ng/mL (0.01-0.034)
[2023-04-03 21:29] LABS: UR Morphine/Opiate cutoff 300 Negative (Negative); Ur Creatinine Normal (Normal); Ur Specific Gravity Normal (Normal); Urine Amphetamines Negative (Negative); Urine Barbiturates Negative (Negative); Urine Benzodiazepines Negative (Negative); Urine Cocaine Negative (Negative); Urine MDMA Negative (Negative); Urine Methadone Negative (Negative); Urine Methamphetamines Negative (Negative); Urine Oxycodone Negative (Negative); Urine Phencyclidine Negative (Negative); Urine Tetrahydrocannabinol Negative (Negative); Urine Tricyclic Antidepressant Negative (Negative); Urine pH Normal (Normal)
[2023-04-03 21:33] LABS: RBC Urine 1-5/HPF (0-5/HPF); WBC Urine None Seen (0-5/HPF)
[2023-04-03 21:34] LABS: Bacteria Urine None Seen; Culture Indicated Urine Cult Not Indicated; Hyaline Casts Urine 0-1/LPF; Mucus Urine 1+ (Negative); Squamous Epithelial Cell Urine None Seen (0-5/HPF)
[2023-04-04] VITALS (25 sets, daily range): BP systolic 112–216; BP diastolic 56–86; PULSE 59–62; RESP 9–28; O2SAT 91–99
[2023-04-04] MEDS: ASPIRIN EC 325 MG TABLET PO (02:57)
[2023-04-04] MEDS: APIXABAN 5 MG TABLET PO (07:50)
[2023-04-04] MEDS: dilTIAZem CD 120 MG CAP PO (07:51)
[2023-04-04] MEDS: PANTOPRAZOLE 40 MG VIAL IV (07:51)
[2023-04-04] MEDS: FLECAINIDE 100 MG TABLET PO (08:34)
--- NOTE | 2023-04-04 09:25 | PC.NURSE ---
pt ambulated to bathroom independently. pt a&o x4.
== END 2023-04-04 11:58 | disposition short-term general hospital (02) ==
PROVIDERS: Emergency Medicine; Emergency Provider Emergency Medicine; PCP Family Medicine Sports Medicine
DX: G45.9 Transient cerebral ischemic attack, unspecified (principal); I48.91 Unspecified atrial fibrillation; Z95.0 Presence of cardiac pacemaker; Z79.01 Long term (current) use of anticoagulants
CPT/HCPCS: 36415; 70450; 70496; 70498; 71045; 80053; 80305; 81003; 81015; 82550; 83735; 84484; 85025; 85610; 85730; 93005; 93010; 96374; 99285; C9113; Q9967

== ENCOUNTER → 2024-01-07 09:24 | Outpatient (CLI) | payer MEDICARE, SELFPAY ==
[2024-01-07 10:10] LABS: Add Manual Diff / Slide Review NO; Basophils Absolute Auto 0 /uL (0-100); Basophils Percent Auto 0.4 % (0-2); Eosinophils Absolute Auto 100 /uL (0-450); Eosinophils Percent Auto 0.7 % (2-4); Hematocrit 45.7 % (41-53); Hemoglobin 15.5 g/dL (13.5-17.5); Lymphocytes Absolute Auto 1000 /uL (1100-4500); Mean Corpuscular HGB Conc 33.9 % (30-36); Mean Corpuscular Hemoglobin 29.9 PG (26-34); Monocytes Absolute Auto 600 /uL (0-900); Monocytes Percent Auto 7.5 % (3-14); Neutrophils Absolute Auto 6000 /uL (1500-7000); Neutrophils Percent Auto 78.4 % (50-75); Platelet Count 207 X10^3/uL (150-400); Red Blood Cell Count 5.19 X10^6/uL (4.5-5.9); Red Cell Distribution Width 13.4 % (11.6-14.8); White Blood Cell Count 7.7 X10^3/uL (4.5-11.0)
[2024-01-07 10:50] LABS: Alanine Aminotransferase 24 IU/L (<50); Albumin 4.1 g/dL (3.5-5.0); Alkaline Phosphatase 81 U/L (38-126); Aspartate Aminotransferase 34 IU/L (17-59); BUN Creatinine Ratio 15.2 (6-22); Blood Urea Nitrogen 16 mg/dL (9-20); Calcium 8.9 mg/dL (8.4-10.2); Carbon Dioxide 27 mmol/L (22-32); Chloride 107 mmol/L (98-107); Cholesterol 126 mg/dL (140-199); Estimated Glomerular Filt Rate > 60 mL/min (>60); Globulin 2.1 g/dL (1.7-4.1); Glucose 101 mg/dL (80-110); HDL Cholesterol 67 mg/dL (40-60); HEMOLYSIS < 15 (0-50); LDL Cholesterol Calculated 46 mg/dL (<100); Potassium 4.5 mmol/L (3.4-5.1); Sodium 139 mmol/L (137-145); Total Protein 6.2 g/dL (6.3-8.2); Triglycerides 67 mg/dL (35-150)
== END ==
PROVIDERS: PCP Family Medicine Sports Medicine; Referring Provider Family Medicine Sports Medicine; Visit Provider Family Medicine Sports Medicine
DX: Z00.00 Encounter for general adult medical examination without abnormal findings (principal)
CPT/HCPCS: 36415; 80053; 80061; 85025

== ENCOUNTER → 2024-08-18 11:40 | Outpatient (CLI) | payer OTHER, SELFPAY ==
[2024-08-18 12:46] LABS: Alanine Aminotransferase 42 IU/L (<50); Albumin 3.9 g/dL (3.5-5.0); Albumin Globulin Ratio 1.8 (1.0-2.8); Alkaline Phosphatase 95 U/L (38-126); Aspartate Aminotransferase 40 IU/L (17-59); BUN Creatinine Ratio 14.4 (6-22); Bilirubin Total 0.9 mg/dL (0.2-1.3); Blood Urea Nitrogen 14 mg/dL (9-20); Calcium 9.2 mg/dL (8.4-10.2); Carbon Dioxide 27 mmol/L (22-32); Chloride 105 mmol/L (98-107); Estimated Glomerular Filt Rate > 60 mL/min (>60); Globulin 2.2 g/dL (1.7-4.1); Glucose 104 mg/dL (80-110); HEMOLYSIS < 15 (0-50); Potassium 4.3 mmol/L (3.4-5.1); Sodium 138 mmol/L (137-145); Total Protein 6.1 g/dL (6.3-8.2)
== END ==
LOC: LAB 11:41
PROVIDERS: PCP Family Medicine Sports Medicine; Referring Provider Internal Medicine Cardiovascular Disease; Visit Provider Internal Medicine Cardiovascular Disease
DX: I48.0 Paroxysmal atrial fibrillation (principal)
CPT/HCPCS: 36415; 80053